=== PATIENT | female | born 1950 | race African-American/Black ===

== ENCOUNTER 2016-08-08 10:09 | Emergency (ER) | payer OTHER ==
--- NOTE | ~2016-08-08 | US84 ---
[id number] [facility]. [facility] [address] [place], [place] [address] [id number] E MR#: [id number] Acc #: [id number] NAME: AUDREY RUIZ : 1950 SEX: F STUDY DATE/TIME: 08/08/2016 11:57 UNIT: [facility] ROOM: STUDY DESCRIPTION: US LE Veins Complete Baldomero Stdy Attending Physician: Raz Hamilton D.O. Ordering Physician: Raz Hamilton D.O. Primary Care Physician: No Primary Care Physician MEDICAL IMAGING REPORT This report is preliminary unless electronic signature is present STUDY Ultrasound lower extremities/veins, complete, bilateral study. HISTORY Bilateral lower extremity pain for 1 week, right greater than left. TECHNIQUE Color-flow, horowitz-scale, compression Doppler and spectral waveform analysis was performed. FINDINGS Examination shows normal compressibility of the veins throughout with no intraluminal filling defects and normal phasicity of flow. CONCLUSION Negative lower extremity venous Doppler. Dictated by... Gerardo Thomas M.D. THIS IS AN ELECTRONICALLY VERIFIED REPORT Gerardo Thomas M.D. at 08/09/2016 9:16 AM NITHYA/rigoberto TD: 08/08/2016 17:43 JOB #: [id number] MEDICAL IMAGING REPORT Page 1 of 1 COPY
[~2016-08-08 10:09] MED LIST: HYDROCHLOROTH12.5 MG PO
[2016-08-08 13:09] LABS: BASOPHIL% 0.5 % (0-2.5); EOSINOPHIL# 0.2 X10e3 (0-0.7); EOSINOPHIL% 3.3 % (0.0-7.0); HEMATOCRIT 40.5 % (35.0-45.0); HEMOGLOBIN 12.8 gm/dL (12.0-16.0); LYMPHOCYTE# 2.6 X10e3 (1.0-3.5); LYMPHOCYTE% 41.5 % (17.0-45.0); MEAN CORPUSCULAR HEMOGLOBIN 27.4 PG (28-34); MEAN CORPUSCULAR HGB CONC 31.5 g/dL (30-36); MEAN PLATELET VOLUME 9.2 FL (6.5-11.5); MONOCYTE# 0.4 X10e3 (0-1.0); MONOCYTE% 5.7 % (3.0-12.0); NEUTROPHIL# 3.1 X10e3 (1.5-7.1); PLATELET COUNT 250 X10e3 (140-420); RED BLOOD COUNT 4.66 X10e (3.90-5.30); RED CELL DISTRIBUTION WIDTH 14.9 % (11.0-15.5); WHITE BLOOD COUNT 6.3 X10e3 (4.0-10.5)
[2016-08-08 13:12] LABS: DIFF IND NO
[2016-08-08 13:34] LABS: ALKALINE PHOSPHATASE 65 U/L (32-92); ALT (SGPT) 12 U/L (10-40); AST (SGOT) 16 U/L (10-42); BILIRUBIN,TOTAL 0.3 mg/dL (0.2-2.0); BLOOD UREA NITROGEN 12 mg/dL (9-23); CALCIUM SERUM 9.3 mg/dL (8.4-10.2); CARBON DIOXIDE 31 mmol/L (22-31); CHLORIDE 105 mmol/L (100-111); CREATININE SERUM 0.8 mg/dL (0.6-1.4); GLUCOSE FASTING 98 mg/dL (70-110); POTASSIUM 4.2 mmol/L (3.5-5.1); PROTEIN TOTAL SERUM 7.8 g/dL (6.0-8.3); SODIUM 141 mmol/L (135-145)
[2016-08-08 13:39] LABS: BILIRUBIN, DIRECT <0.1 mg/dL (0.0-0.2); BILIRUBIN,INDIRECT 0.2 mg/dL (0.0-0.9)
== END 2016-08-08 14:18 | disposition home or self-care (01) ==
LOC: CED 10:09
PROVIDERS: Emergency Medicine
DX: R60.0 Localized edema (principal); I10 Essential (primary) hypertension
CPT/HCPCS: 36415; 80048; 80076; 83880; 84484; 85025; 93970; 99284